=== PATIENT | male | born 1975 | race Caucasian/White ===

== ENCOUNTER 2023-11-20 18:51 | Emergency (ER) | payer SELFPAY ==
[2023-11-20] MEDS: Hydrocortisone 1% Crm 30 GM Tube TOP ONE (21:47)
[2023-11-20] MEDS: methylPREDNISolone Sodium Succinate 125 MG/2 ML SDV IM ONE (21:47)
[2023-11-20] MEDS: diphenhydrAMINE 50 MG Cap PO ONE (21:50)
== END 2023-11-20 22:00 | disposition home or self-care (01) ==
LOC: DL.ED 18:51
DX: T63.441A Toxic effect of venom of bees, accidental (unintentional), initial encounter (principal)
CPT/HCPCS: 96372; 99282; A9270-GY; J2919; Q0163

== ENCOUNTER 2024-03-15 04:39 | Emergency (ER) | payer SELFPAY ==
[2024-03-15 05:11] LABS: BASOPHILS PERCENT AUTO 0.2 % (0.0-1.0); EOSINOPHILS PERCENT AUTO 2.2 % (1.0-3.0); HEMATOCRIT 43.6 % (40.0-54.0); HEMOGLOBIN 14.2 g/dL (14.0-18.0); LYMPHOCYTES PERCENT AUTO 32.2 % (20.5-50.1); MEAN CORPUSCULAR HEMOGLOBIN 28.6 pg (27.0-34.0); MEAN CORPUSCULAR HGB CONC 32.6 g/dL (33.0-35.0); MEAN CORPUSCULAR VOLUME 87.7 fL (80-100); MONOCYTES PERCENT AUTO 11.5 % (2-8); NEUTROPHILS PERCENT AUTO 53.9 % (42.2-75.2); PLATELET COUNT,PLT 263 10^3/uL (150-450); RED BLOOD CELL COUNT 4.97 10^6/uL (4.6-6.2); WHITE BLOOD CELL COUNT,WBC 6.3 10^3/uL (5.0-10.0)
[2024-03-15] MEDS: Famotidine 20 MG/2 ML SDV IVPUSH ONE (05:11)
[2024-03-15] MEDS: Ondansetron 4 MG/2 ML SDV IVPUSH ONE (05:11)
[2024-03-15] MEDS: Sodium Chloride 0.9% 1,000 ML IV ONE (05:12)
[2024-03-15 05:26] LABS: A/G RATIO 0.9; ALANINE AMINOTRANSFERASE,ALT 34 U/L (16-63); ALBUMIN 3.6 g/dL (3.4-5.0); ALKALINE PHOSPHATASE 67 U/L (46-116); ANION GAP 8.7 mEq/L (7-13); BILIRUBIN TOTAL 0.2 mg/dL (0.2-1.0); BLOOD UREA NITROGEN,BUN 22 mg/dL (7-18); BUN/CREATININE RATIO 20.6 (No establ ref range); CARBON DIOXIDE,CO2 34 mmol/L (21-32); CHLORIDE,CL 103 mmol/L (98-107); CREATININE 1.07 mg/dL (0.70-1.30); GLUCOSE RANDOM 102 mg/dL (70-99); LIPASE 31 U/L (16-77); MAGNESIUM 1.8 mg/dL (1.8-2.4); POTASSIUM,K 4.7 mmol/L (3.5-5.1); PROTEIN TOTAL,TP 7.6 g/dL (6.4-8.2); SODIUM,NA 141 mmol/L (136-145)
[2024-03-15 05:35] LABS: ASPARTATE AMNIOTRANSFERASE,AST 23 U/L (15-37); ESTIMATED GFR 87 mL/min (>=60); ETHANOL BLOOD MEDICAL < 3 mg/dL (0)
[2024-03-15 06:13] LABS: APPEARANCE,URINE CLEAR (CLEAR); BILIRUBIN,URINE NEGATIVE (NEGATIVE); COLOR,URINE YELLOW (YELLOW); GLUCOSE,URINE NEGATIVE (NEGATIVE); KETONES,URINE NEGATIVE (NEGATIVE); LEUKOCYTE ESTERASE,URINE NEGATIVE (NEGATIVE); NITRITE,URINE NEGATIVE (NEGATIVE); OCCULT BLOOD,URINE NEGATIVE (NEGATIVE); PROTEIN,URINE NEGATIVE (NEGATIVE); UROBILINOGEN,URINE 0.2 mg/dL (0.2-1.0)
== END 2024-03-15 08:04 | disposition home or self-care (01) ==
LOC: DL.ED 04:39
DX: E86.0 Dehydration (principal); R11.2 Nausea with vomiting, unspecified; Z79.899 Other long term (current) drug therapy
CPT/HCPCS: 36415; 74019; 80053; 80307; 81003; 82947; 83690; 83735; 85025; 87045; 87046; 87428; 87899; 93005; 96361; 96374; 96375; 99284; J2405; J7030

== ENCOUNTER 2024-08-09 05:28 | Day surgery (SDC) | payer SELFPAY ==
[~2024-08-09 05:28] MED LIST: Dextrose 5%-0.45% NaCl 1,000 ML IV SCH; Sodium Chloride 0.9% 10 ML Syringe FLUSH PRN; Sodium Chloride 0.9% 10 ML Syringe FLUSH SCH
[2024-08-09] MEDS ORDERED: Lidocaine 2% 20 ML MDV NERVRT ONE (05:29)
[2024-08-09] MEDS ORDERED: Lactated Ringers 1,000 ML IV ONE (05:29)
[2024-08-09] MEDS ORDERED: Propofol 200 MG/20 ML SDV IV ONE (05:29)
[2024-08-09] MEDS ORDERED: Dextrose 5%-0.45% NaCl 1,000 ML IV SCH (05:30)
[2024-08-09] MEDS ORDERED: Lidocaine 2% 20 ML MDV ONE (05:49)
[2024-08-09] MEDS ORDERED: Propofol 200 MG/20 ML SDV ONE (05:49)
[2024-08-09] MEDS: Lactated Ringers 1,000 ML IV SCH (06:13)
== END 2024-08-09 08:00 | disposition home or self-care (01) ==
LOC: DL.ENDO 05:28
PROVIDERS: ATTEND Internal Medicine Gastroenterology
DX: R10.9 Unspecified abdominal pain (principal); K52.9 Noninfective gastroenteritis and colitis, unspecified; E66.09 Other obesity due to excess calories; F41.1 Generalized anxiety disorder; F32.A Depression, unspecified
CPT/HCPCS: 43239; J2003; J2704; J7120

== ENCOUNTER 2024-09-24 19:28 | Emergency (ER) | payer SELFPAY ==
[2024-09-24] MEDS ORDERED: Ondansetron 4 MG/2 ML SDV IVPUSH ONE (19:50)
[2024-09-24] MEDS ORDERED: Sodium Chloride 0.9% 10 ML Syringe FLUSH PRN (19:51)
== END 2024-09-24 19:50 | disposition home or self-care (01) ==
LOC: DL.ED 19:28
DX: Z53.21 Procedure and treatment not carried out due to patient leaving prior to being seen by health care provider (principal)